=== PATIENT | female | born 1980 | race Caucasian/White ===

== ENCOUNTER 2020-04-26 21:02 | Emergency (ER) | payer OTHER ==
[~2020-04-26] VITALS: Ht 165.1 cm; Wt 106.1 kg
[2020-04-26 21:38] VITALS: BP 133/80
--- NOTE | 2020-04-26 21:41 | NUR ---
PT TO BED 9, DR COLON AT THE BEDSIDE.
[2020-04-26] MEDS ORDERED: LIDOCAINE MPF 1% 10 MG/ML VIAL INJ ONE (21:45)
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
[2020-04-26] MEDS ORDERED: BACITRACIN OINT 500 UNITS/GM PKT TP ONE (22:05)
--- NOTE | 2020-04-26 22:05 | NUR ---
ERMD AT BEDSIDE PERFORMING STITCHES
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
[2020-04-26 22:50] VITALS: BP 132/79
--- NOTE | 2020-04-26 22:50 | NUR ---
Patient discharged with v/s stable. Written and verbal after care instructions about laceration care given and explained. Patient alert, oriented and verbalized understanding of instructions. Ambulatory with steady gait. All questions addressed prior to discharge. ID band removed. Patient advised to follow up with PMD. Rx of ibuprofen given. Patient educated on indication of medication including possible reaction and side effects. Opportunity to ask questions provided and answered.
== END 2020-04-26 22:50 | disposition home or self-care (01) ==
LOC: MED 21:02
DX: S61.512A Laceration without foreign body of left wrist, initial encounter (principal); W25.XXXA Contact with sharp glass, initial encounter; Y93.89 Activity, other specified; Y92.89 Other specified places as the place of occurrence of the external cause; Y99.8 Other external cause status
CPT/HCPCS: 12002; 90471; 90715; 99283; J2001

== ENCOUNTER 2021-08-25 15:36 | Emergency (ER) | payer OTHER, SELFPAY ==
[~2021-08-25] VITALS: Ht 165.1 cm; Wt 95.3 kg
[2021-08-25 15:47] VITALS: BP 132/93
--- NOTE | 2021-08-25 16:45 | NUR ---
JOHNY AND CYN SWABS COLLECTED AND WALKED TO LAB.
[2021-08-25] MEDS ORDERED: PROM118S5 PO (17:16)
[2021-08-25] MEDS ORDERED: ACET-10509 PO (17:16)
[2021-08-25] MEDS ORDERED: PRED20TA5 PO (17:19)
--- NOTE | 2021-08-25 17:34 | NUR ---
NO NURSING INTERVENTIONS PROVIDED
[2021-08-25 17:35] VITALS: BP 132/93
--- NOTE | 2021-08-25 17:35 | NUR ---
Patient discharged with v/s stable. Written and verbal after care instructions given and explained. Patient alert, oriented and verbalized understanding of instructions. Ambulatory with steady gait. All questions addressed prior to discharge. ID band removed. Patient advised to follow up with PMD. Rx of TYLENOL EXTRA STRENGTH, PREDNISONE AND PROMETHAZINE given. Patient educated on indication of medication including possible reaction and side effects. Opportunity to ask questions provided and answered.
== END 2021-08-25 17:35 | disposition home or self-care (01) ==
LOC: MED 15:36
DX: J06.9 Acute upper respiratory infection, unspecified (principal); Z20.822 Contact with and (suspected) exposure to COVID-19; Z79.899 Other long term (current) drug therapy
CPT/HCPCS: 87426; 99283; U0003

== ENCOUNTER 2022-09-12 13:37 | Emergency (ER) | payer OTHER ==
[~2022-09-12] VITALS: Ht 167.6 cm; Wt 81.6 kg
[~2022-09-12 13:37] MED LIST: ACET-10509 PO; PRED20TA5 PO; PROM118S5 PO
[2022-09-12 13:51] VITALS: BP 135/82
--- NOTE | 2022-09-12 13:58 | NUR ---
SWABBED AND SENT TO LAB
[2022-09-12] MEDS ORDERED: TAM75 PO (15:52)
[2022-09-12] MEDS ORDERED: IBUP-2213 PO (15:52)
[2022-09-12] MEDS ORDERED: PROM118S5 PO (15:52)
[2022-09-12] MEDS ORDERED: BENZ-300 PO (15:52)
--- NOTE | 2022-09-12 16:01 | NUR ---
Patient discharged with v/s stable. Written and verbal after care instructions given and explained. Patient alert, oriented and verbalized understanding of instructions. Ambulatory with steady gait. All questions addressed prior to discharge. ID band removed. Patient advised to follow up with PMD. Rx of PEPTO BISOL, ZOFRAN given. Patient educated on indication of medication including possible reaction and side effects. Opportunity to ask questions provided and answered.
== END 2022-09-12 16:01 | disposition home or self-care (01) ==
LOC: MED 13:37
DX: J10.1 Influenza due to other identified influenza virus with other respiratory manifestations (principal); Z20.822 Contact with and (suspected) exposure to COVID-19; Z79.899 Other long term (current) drug therapy
CPT/HCPCS: 99283

== ENCOUNTER 2023-04-13 12:16 | Emergency (ER) | payer OTHER ==
[~2023-04-13] VITALS: Ht 167.6 cm; Wt 113.4 kg
[~2023-04-13 12:16] MED LIST changes: +BENZ-300 PO; +IBUP-2213 PO; +TAM75 PO
[2023-04-13 12:34] VITALS: BP 117/80
--- NOTE | 2023-04-13 13:14 | NUR ---
DIZZINESS, N/V, BACK/RIB PAIN ONSET YESTERDAY.
--- NOTE | 2023-04-13 13:18 | NUR ---
AT BEDSIDE, MSE COMPLETED.
[2023-04-13] MEDS ORDERED: ONDANSETRON 4 MG ODT PO ONE (13:20)
[2023-04-13] MEDS ORDERED: ACETAMINOPHEN 325 MG TAB PO ONE (13:20)
[2023-04-13] MEDS ORDERED: MECLIZINE 25 MG TAB PO ONE (13:20)
[2023-04-13] MEDS ORDERED: ONDA-188 PO (13:49)
[2023-04-13] MEDS ORDERED: MECL-303 PO (13:49)
[2023-04-13 15:34] VITALS: BP 110/62
--- NOTE | 2023-04-13 15:35 | NUR ---
Patient discharged with v/s stable. Written and verbal after care instructions given and explained. Patient alert, oriented and verbalized understanding of instructions. Ambulatory with steady gait. All questions addressed prior to discharge. ID band removed. Patient advised to follow up with PMD. Rx of ZOFRAN, ANTIVERT given. Patient educated on indication of medication including possible reaction and side effects. Opportunity to ask questions provided and answered.
== END 2023-04-13 15:34 | disposition home or self-care (01) ==
LOC: MED 12:16
DX: R42 Dizziness and giddiness (principal); R11.2 Nausea with vomiting, unspecified; M54.50 Low back pain, unspecified; D64.9 Anemia, unspecified; E78.5 Hyperlipidemia, unspecified; Z79.899 Other long term (current) drug therapy; Z90.49 Acquired absence of other specified parts of digestive tract
CPT/HCPCS: 81025; 93005; 99284; J8597; Q0162